=== PATIENT | female | born 1970 | race Hispanic/Latino ===

== ENCOUNTER → 2018-04-18 | Outpatient (CLI) | payer OTHER | LOC: MAMMO 10:26 | PROVIDERS: ATTEND Internal Medicine | DX: Z12.31 Encounter for screening mammogram for malignant neoplasm of breast (principal) | CPT/HCPCS: 77067 ==

== ENCOUNTER → 2018-07-24 | Day surgery (SDC) | payer OTHER ==
[~2018-07-24] MED LIST: ALLEGRA ALLERG180 MG PO; AMLODIPINE BESYL5 MG PO; BUPIVACAINE 0.5%/EPI 30 ML SDV INJ ONE; CEFAZOLIN SOD 2 GM/D5W 50ML 50 ML IV ONE; DEXAMETHASONE SOD PHOS INJ 4 MG/ML VIAL ONE; FENTANYL CITRATE/PF 100MCG/2 ML INJ ONE; LEVOTHYROXINE50 MCG PO; LIDOCAINE HCL 2% LOCAL INJ 5 ML SDV VIAL INJ ONE; MIDAZOLAM HCL 2 MG/2 ML VIAL ONE; ONDANSETRON HCL INJ 2 MG/ML VIAL ONE; PROPOFOL IV EMULSION 10 MG/ML 20 ML VIAL ONE; SEVOFLURANE INHAL SOLN 250 ML PEN BTL ONE; [UNRECOGNIZED DRUG - OTHER] IH
--- OUTSIDE RECORDS SUMMARY | 2018-07-24 08:48 | XMS REPORT ---
Author Author [facility] Address Unknown Phone Unavailable Care Team Providers Care Panel Saw Operator Name Role Phone RODY POWER Unavailable Unavailable Problems This patient has no known problems. Allergies, Adverse Reactions, Alerts This patient has no known allergies or adverse reactions. Medications This patient has no known medications. Results Test Description Test Time Test Comments Text Results Atomic Results Result Comments MAMMOGRAPHY DIGITAL SCR BILAT 2018-04-18 11:05:00 [place] [address] Patient Name: IVÁN TOMAS MR #: [id number] : 1970 Age/Sex: 47/F Req #: [id number] [facility] Physician: Ordered by: RODY POWER MD Report #: [id number] Location: MAMMO Room/Bed: Procedure: [id number] MG/MAMMOGRAPHY DIGITAL SCR BILAT Exam Date: 04/18/18 Exam Time: 1046 REPORT STATUS: Signed #[id number] - MGSCRBIL #BILATERAL DIGITAL SCREENING MAMMOGRAM WITH CAD: 04/18/2018 CLINICAL: Routine screening. Comparison is made to exams dated: 05/08/2016 mammogram and 02/24/2015 mammogram - [facility]. Current study contains 4 films. The tissue of both breasts is predominantly fatty. Current study was also evaluated with a Computer Aided Detection (CAD) system. There are benign calcifications in the right breast. No significant masses, calcifications, or other findings are seen in either breast. There has been no significant interval change. IMPRESSION: BENIGN There is no mammographic evidence of malignancy. A 1 year screening mammogram is recommended. The patient will be notified by letter of the results. Devon yee/tayler:05/02/2018 13:01:15 Mat Man: Vanessa WAHL(R)(M), [facility] letter sent: Compared to Prior B9 Mammogram BI-RADS: 2 Benign Dictated By: DEVON DUMONT DO [id number] Transcribed By: TAYLER on 05/02/18 1301 COPY TO: RODY POWER MD
[2018-07-24 13:05] VITALS: BP 124/77
--- NOTE | 2018-07-24 17:20 | Operative Report ---
DATE OF PROCEDURE: July 24, 2018 PREOPERATIVE DIAGNOSES 1. Left knee medial meniscus tear. 2. Left knee degenerative joint disease of the knee. POSTOPERATIVE DIAGNOSES 1. Left knee medial meniscus tear. 1. Left knee degenerative joint disease of the knee. PROCEDURE PERFORMED: The patient underwent a 1. Left knee examination under anesthesia. 2. Left knee arthroscopy. 3. Left knee partial medial meniscectomy. 4. Left knee chondroplasty of the patella, the trochlea, the medial femoral condyle and the medial tibial plateau, the lateral femoral condyle and the lateral tibial plateau. PRODUCTION MAINTENANCE TECHNICIAN: Yady Zamorano. ANESTHESIA: General endotracheal intubation anesthesia. INTRAVENOUS FLUIDS: As per the anesthesia record. DESCRIPTION OF PROCEDURE: Ms. Cox was taken to the operating room and placed in the supine position on the operating table. Following induction of general anesthesia as well as endotracheal intubation, the patient's left lower extremity was examined under anesthesia. She was found to have a mild effusion within the knee joint but an otherwise ligamentously stable knee. The patient's lower extremity was prepped and draped in standard surgical fashion. A 2-portal technique was used to provide this patient an arthroscopic evaluation of the knee joint. Examination of the suprapatellar pouch, medial and lateral gutters found no evidence of loose bodies. There was, however, chondromalacia of the patellar and trochlear surfaces. The scope was then advanced into the medial compartment, and examination of the medial compartment demonstrated a tear in the posterior horn and root of the medial meniscus. There was also chondromalacia of the articulating surfaces. A combination of biting forceps and a motorized shaver were used to resect the torn portion of the meniscus. Chondroplasties of the medial femoral condyle and the medial tibial plateau were performed at this time. The scope was then advanced into the intercondylar notch, and the anterior cruciate ligament was identified and found to be intact. The scope was then advanced into the lateral compartment, and chondromalacia of the articulating surfaces was encountered. Chondroplasties of the lateral femoral condyle and lateral tibial plateau were performed at this time. The scope was then advanced into the suprapatellar pouch, and chondroplasties of the patella and trochlea were performed. The knee was deflated of its sterile normal saline. Each of the portal sites was closed using 4-0 nylon suture. The portal sites as well as the knee itself were then injected with half percent Marcaine with epinephrine. Sterile dressings were applied, and the patient was awakened and taken to the postanesthesia care unit in stable condition. Job#: [id number] EV
== END | disposition home or self-care (01) ==
LOC: OR 08:46
PROVIDERS: ATTEND Specialist
DX: S83.222A Peripheral tear of medial meniscus, current injury, left knee, initial encounter (principal); S83.262A Peripheral tear of lateral meniscus, current injury, left knee, initial encounter; M17.12 Unilateral primary osteoarthritis, left knee; M22.42 Chondromalacia patellae, left knee; I10 Essential (primary) hypertension; E66.01 Morbid (severe) obesity due to excess calories; R06.09 Other forms of dyspnea; E05.90 Thyrotoxicosis, unspecified without thyrotoxic crisis or storm; X58.XXXA Exposure to other specified factors, initial encounter; Z01.810 Encounter for preprocedural cardiovascular examination; Z68.42 Body mass index [BMI] 45.0-49.9, adult
CPT/HCPCS: 29881; 36415; 84702; 93005; J0690; J1100; J2001; J2250; J2405; J2704

== ENCOUNTER → 2019-05-02 | Outpatient (CLI) | payer OTHER ==
[~2019-05-02] MED LIST changes: -BUPIVACAINE 0.5%/EPI 30 ML SDV INJ ONE; -CEFAZOLIN SOD 2 GM/D5W 50ML 50 ML IV ONE; -DEXAMETHASONE SOD PHOS INJ 4 MG/ML VIAL ONE; -FENTANYL CITRATE/PF 100MCG/2 ML INJ ONE; -LIDOCAINE HCL 2% LOCAL INJ 5 ML SDV VIAL INJ ONE; -MIDAZOLAM HCL 2 MG/2 ML VIAL ONE; -ONDANSETRON HCL INJ 2 MG/ML VIAL ONE; -PROPOFOL IV EMULSION 10 MG/ML 20 ML VIAL ONE; -SEVOFLURANE INHAL SOLN 250 ML PEN BTL ONE
--- NOTE | 2019-05-02 09:48 | Diagnostic Imaging Report ---
EXAMINATION: CHEST 2 VIEWS INDICATION: Pre-operative COMPARISON: None FINDINGS: LINES/TUBES:None LUNGS:The lungs are well-inflated. No focal consolidation or pulmonary edema. PLEURA:No pleural effusion or pneumothorax. MEDIASTINUM:The cardiomediastinal silhouette appears normal in size and shape. BONES/SOFT TISSUES:No acute osseous injury. ABDOMEN:No free air under the diaphragm. IMPRESSION: No focal pneumonia or pulmonary edema. Signed by: Candice Amanda MD on 05/02/2019 9:45 AM
== END ==
LOC: RAD 08:39
PROVIDERS: ATTEND Internal Medicine
DX: Z01.818 Encounter for other preprocedural examination (principal)
CPT/HCPCS: 71046

== ENCOUNTER → 2019-11-06 | Outpatient (CLI) | payer OTHER ==
--- NOTE | 2019-11-10 09:10 | Diagnostic Imaging Report ---
#[id number] - MGSCRBIL #BILATERAL DIGITAL SCREENING MAMMOGRAM WITH CAD: 11/06/2019 CLINICAL: Routine screening. Comparison is made to exams dated: 04/18/2018 mammogram and 05/08/2016 mammogram - [facility]. Current study contains 4 films. The tissue of both breasts is predominantly fatty. Current study was also evaluated with a Computer Aided Detection (CAD) system. Benign appearing calcifications are noted bilaterally. No significant masses, calcifications, or other findings are seen in either breast. IMPRESSION: BENIGN There is no mammographic evidence of malignancy. A 1 year screening mammogram is recommended. The patient will be notified by letter of the results. YAKELIN ST M.D. ct/penrad:11/07/2019 17:02:15 Dictaphone Typist: Vanessa WAHL(R)(M), [facility] letter sent: Normal Exam Mammogram BI-RADS: 2 Benign
== END ==
LOC: MAMMO 15:41
PROVIDERS: ATTEND Internal Medicine
DX: Z12.31 Encounter for screening mammogram for malignant neoplasm of breast (principal)
CPT/HCPCS: 77067

== ENCOUNTER → 2021-01-04 | Outpatient (CLI) | payer OTHER | LOC: MAMMO 14:34 | PROVIDERS: ATTEND Internal Medicine | DX: Z12.31 Encounter for screening mammogram for malignant neoplasm of breast (principal) | CPT/HCPCS: 77067 ==

== ENCOUNTER → 2022-03-01 | Outpatient (CLI) | payer OTHER | LOC: MAMMO 13:08 | PROVIDERS: ATTEND Obstetrics & Gynecology | DX: Z12.31 Encounter for screening mammogram for malignant neoplasm of breast (principal) | CPT/HCPCS: 77067 ==

== ENCOUNTER → 2024-08-15 | Outpatient (REF) | payer OTHER | LOC: MAMMO 12:17 | PROVIDERS: ATTEND Internal Medicine | DX: Z12.31 Encounter for screening mammogram for malignant neoplasm of breast (principal) | CPT/HCPCS: 77067 ==